=== PATIENT | female | born 1990 | race Caucasian/White ===

== ENCOUNTER 2018-07-09 07:50 | Emergency (ER) | payer SELFPAY ==
[~2018-07-09] VITALS: Ht 152.4 cm; Wt 111.4 kg
[2018-07-09 08:00] VITALS: Ht 152.4 cm; Wt 111.4 kg
[2018-07-09] MEDS ORDERED: LISINOPRIL5 MG PO (08:02)
[2018-07-09 08:21] LABS: BASOPHILS 0.4 % (0-2); EOSINOPHILS 0.8 % (0-7); HEMATOCRIT 35.7 % (36.0-48.0); HEMOGLOBIN 11.5 g/dL (12-16); IMMATURE GRANULOCYTES 0.3 % (0-5); LYMPHOCYTES 28.3 % (15-50); MCH 26.8 pg (26.0-34.0); MCHC 32.2 g/dL (31.0-37.0); MCV 83.2 fL (80.0-100.0); MEAN PLATELET VOLUME 9.4 fL (7.4-10.4); MONOCYTES 8.5 % (2-11); NEUTROPHILS 61.7 % (40-80); PLATELET COUNT 291 10x3/uL (130-400); RBC 4.29 10x6/uL (4.00-5.40); WBC 7.2 10x3/uL (4.8-10.8)
[2018-07-09 08:27] LABS: HCG URINE NEGATIVE (NEGATIVE)
[2018-07-09 08:33] LABS: APPEARANCE CLEAR (CLEAR); BACTERIA NONE SEEN /hpf (NONE SEEN); BILIRUBIN NEGATIVE (NEGATIVE); COLOR YELLOW (YELLOW); EPITHELIAL CELLS OCC /hpf (0-5); GLUCOSE NEGATIVE (NEGATIVE); KETONE NEGATIVE (NEGATIVE); NITRITE NEGATIVE (NEGATIVE); PH 5.5 (5.0-6.0); PROTEIN TRACE mg/dL (NEGATIVE); RED CELLS - URINE NONE SEEN /hpf (0-5); UROBILINOGEN NORMAL (NORMAL); WHITE CELLS - URINE NSEEN /hpf (0-5)
[2018-07-09 08:39] LABS: ALBUMIN 3.6 g/dL (3.4-5.0); ALKALINE PHOSPHATASE 42 U/L (46-116); ALT (SGPT) 19 U/L (10-68); CALC OSMOLALITY 269 mosm/kg (275-300); CALCIUM 8.5 mg/dL (8.5-10.1); CHLORIDE - SERUM 102 mmol/L (98-107); CREATININE - SERUM 0.7 mg/dL (0.6-1.3); GLUCOSE 86 mg/dL (74-106); POTASSIUM - SERUM 4.4 mmol/L (3.5-5.1); PROTEIN - SERUM 7.8 g/dL (6.4-8.2); SODIUM 136 mmol/L (136-145); UREA NITROGEN 9 mg/dL (7-18); eGFR NON AFRICAN AMERICAN > 90 mL/min (90-120)
[2018-07-09] MEDS ORDERED: PHENERGAN25 MG RC (10:29)
[2018-07-09] MEDS ORDERED: LOPERAMIDE HCL2 MG PO (10:29)
[2018-07-09 10:36] VITALS: BP 117/74
== END 2018-07-09 10:37 | disposition home or self-care (01) ==
LOC: D.ER 07:50
PROVIDERS: Emergency Medicine
DX: R10.9 Unspecified abdominal pain (principal); D64.9 Anemia, unspecified; M54.5 Low back pain; I10 Essential (primary) hypertension

== ENCOUNTER 2018-09-23 07:49 | Emergency (ER) | payer SELFPAY ==
[~2018-09-23] VITALS: Ht 152.4 cm; Wt 104.5 kg
[~2018-09-23 07:49] MED LIST: LISINOPRIL5 MG PO; LOPERAMIDE HCL2 MG PO; PHENERGAN25 MG RC
[2018-09-23 07:51] VITALS: Ht 152.4 cm; Wt 104.5 kg
[2018-09-23 08:21] VITALS: BP 130/83
== END 2018-09-23 08:22 | disposition home or self-care (01) ==
LOC: D.ER 07:49
DX: L72.3 Sebaceous cyst (principal); I10 Essential (primary) hypertension

== ENCOUNTER 2018-11-01 11:57 | Emergency (ER) | payer SELFPAY ==
[~2018-11-01] VITALS: Ht 152.4 cm; Wt 107.7 kg
[2018-11-01 12:01] VITALS: Ht 152.4 cm; Wt 107.7 kg
[2018-11-01] MEDS ORDERED: FLUTICASONE PRO16 GM NASAL (14:20)
[2018-11-01] MEDS ORDERED: TESSALON PERLE100 MG PO (14:20)
[2018-11-01] MEDS ORDERED: ZPAK PO (14:20)
[2018-11-01 14:51] VITALS: BP 133/81
== END 2018-11-01 14:51 | disposition home or self-care (01) ==
LOC: D.ER 11:57
DX: J01.90 Acute sinusitis, unspecified (principal); R50.9 Fever, unspecified; R05 Cough

== ENCOUNTER 2018-11-29 07:51 | Emergency (ER) | payer SELFPAY ==
[~2018-11-29] VITALS: Ht 152.4 cm; Wt 104.5 kg
[~2018-11-29 07:51] MED LIST changes: +FLUTICASONE PRO16 GM NASAL; +TESSALON PERLE100 MG PO; +ZPAK PO
[2018-11-29 07:59] VITALS: Ht 152.4 cm; Wt 104.5 kg
[2018-11-29 08:15] LABS: APPEARANCE HAZY (CLEAR); BILIRUBIN NEGATIVE (NEGATIVE); COLOR YELLOW (YELLOW); GLUCOSE NEGATIVE (NEGATIVE); KETONE NEGATIVE (NEGATIVE); NITRITE NEGATIVE (NEGATIVE); PH 5.5 (5.0-6.0); PROTEIN NEGATIVE (NEGATIVE); SPECIFIC GRAVITY 1.025 (1.005-1.020); UROBILINOGEN NORMAL (NORMAL)
[2018-11-29 08:16] LABS: HCG URINE NEGATIVE (NEGATIVE)
[2018-11-29] MEDS ORDERED: NAPROSYN500 MG PO (08:28)
[2018-11-29] MEDS ORDERED: AUGMENTIN 875-11 TAB PO (08:28)
[2018-11-29 08:53] VITALS: BP 125/74
== END 2018-11-29 08:56 | disposition home or self-care (01) ==
LOC: D.ER 07:51
PROVIDERS: Family Medicine
DX: K04.7 Periapical abscess without sinus (principal)

== ENCOUNTER 2019-05-31 15:10 | Emergency (ER) | payer MEDICAID ==
[~2019-05-31 15:10] MED LIST changes: +AUGMENTIN 875-11 TAB PO; +NAPROSYN500 MG PO
[2019-05-31 15:14] VITALS: Ht 152.4 cm
[2019-05-31] MEDS ORDERED: MEDROL DOSE PACK4 MG PO (15:57)
[2019-05-31] MEDS ORDERED: VISTARIL50 MG PO (15:57)
[2019-05-31 16:45] VITALS: BP 115/64
== END 2019-05-31 16:46 | disposition home or self-care (01) ==
LOC: D.ER 15:10
DX: S10.96XA Insect bite of unspecified part of neck, initial encounter (principal); W57.XXXA Bitten or stung by nonvenomous insect and other nonvenomous arthropods, initial encounter; Y93.89 Activity, other specified; Y92.89 Other specified places as the place of occurrence of the external cause

== ENCOUNTER 2019-06-03 08:59 | Emergency (ER) | payer MEDICAID ==
[~2019-06-03] VITALS: Ht 152.4 cm; Wt 90.9 kg
[~2019-06-03 08:59] MED LIST changes: +MEDROL DOSE PACK4 MG PO; +VISTARIL50 MG PO
[2019-06-03 09:05] VITALS: Ht 152.4 cm; Wt 90.9 kg
[2019-06-03] MEDS ORDERED: TORADOL10 MG PO (10:54)
[2019-06-03] MEDS ORDERED: VIBRAMYCIN 100100 MG PO (10:54)
[2019-06-03 11:11] VITALS: BP 120/86
== END 2019-06-03 11:29 | disposition home or self-care (01) ==
LOC: D.ER 08:59
DX: M27.2 Inflammatory conditions of jaws (principal); I10 Essential (primary) hypertension

== ENCOUNTER 2020-02-12 19:54 | Emergency (ER) | payer MEDICAID ==
[~2020-02-12] VITALS: Ht 152.4 cm; Wt 90.5 kg
[~2020-02-12 19:54] MED LIST changes: +TORADOL10 MG PO; +VIBRAMYCIN 100100 MG PO
[2020-02-12 20:12] VITALS: Ht 152.4 cm; Wt 90.5 kg
[2020-02-12] MEDS ORDERED: STERAPRED DS 1010 MG PO (21:04)
[2020-02-12 21:14] VITALS: BP 152/96
== END 2020-02-12 21:14 | disposition home or self-care (01) ==
LOC: D.ER 19:54
DX: L29.9 Pruritus, unspecified (principal); E03.9 Hypothyroidism, unspecified; I10 Essential (primary) hypertension; R13.10 Dysphagia, unspecified

== ENCOUNTER 2020-07-08 07:44 | Emergency (ER) | payer SELFPAY ==
[~2020-07-08] VITALS: Ht 152.4 cm; Wt 90.9 kg
[~2020-07-08 07:44] MED LIST changes: +STERAPRED DS 1010 MG PO
[2020-07-08 07:50] VITALS: Ht 152.4 cm; Wt 90.9 kg
[2020-07-08 08:25] LABS: HCG URINE NEGATIVE (NEGATIVE)
[2020-07-08 08:51] LABS: NITRITE NEGATIVE (NEGATIVE)
[2020-07-08 08:52] LABS: BACTERIA MANY /HPF (NONE SEEN); BILIRUBIN NEGATIVE (NEGATIVE); KETONE SMALL mg/dL (NEGATIVE); UROBILINOGEN 4 mg/dL (< 2); WHITE CELLS - URINE 0-5 HPF (0-4)
[2020-07-08 09:40] LABS: BASOPHILS 0.2 % (0-2); EOSINOPHILS 1.2 % (0-7); HEMATOCRIT 38.2 % (36.0-48.0); HEMOGLOBIN 12.1 g/dL (12-16); IMMATURE GRANULOCYTES 0.4 % (0-5); LYMPHOCYTES 28.6 % (15-50); MCH 27.2 pg (26.0-34.0); MCHC 31.7 g/dL (31.0-37.0); MCV 85.8 fL (80.0-100.0); MEAN PLATELET VOLUME 9.4 fL (7.4-10.4); MONOCYTES 10.6 % (2-11); PLATELET COUNT 318 10x3/uL (130-400); RBC 4.45 10x6/uL (4.00-5.40); RDW 14.1 % (11.5-14.5); WBC 8.1 10x3/uL (4.8-10.8)
[2020-07-08 09:46] LABS: CALC OSMOLALITY 274 mosm/kg (275-300); CALCIUM 8.4 mg/dL (8.5-10.1); CHLORIDE - SERUM 105 mmol/L (98-107); CREATININE - SERUM 0.9 mg/dL (0.6-1.3); GLUCOSE 92 mg/dL (74-106); POTASSIUM - SERUM 3.6 mmol/L (3.5-5.1); SODIUM 138 mmol/L (136-145); UREA NITROGEN 10 mg/dL (7-18); eGFR NON AFRICAN AMERICAN 77 mL/min (90-120)
[2020-07-08 09:55] LABS: ALBUMIN 3.7 g/dL (3.4-5.0); ALKALINE PHOSPHATASE 47 U/L (30-120); ALT (SGPT) 15 U/L (10-68); BILIRUBIN - TOTAL 0.29 mg/dL (0.2-1.3); CREATINE KINASE 55 UL (21-215); PROTEIN - SERUM 7.9 g/dL (6.4-8.2)
[2020-07-08] MEDS ORDERED: HYDROCODON-ACE1 EA10 PO (10:04)
[2020-07-08 10:59] VITALS: BP 136/86
== END 2020-07-08 11:05 | disposition home or self-care (01) ==
LOC: D.ER 07:44
PROVIDERS: Family Medicine
DX: L56.8 Other specified acute skin changes due to ultraviolet radiation (principal); I10 Essential (primary) hypertension

== ENCOUNTER 2020-08-04 15:56 | Emergency (ER) | payer MEDICAID ==
[~2020-08-04] VITALS: Ht 152.4 cm; Wt 90.9 kg
[~2020-08-04 15:56] MED LIST changes: +HYDROCODON-ACE1 EA10 PO
[2020-08-04 16:10] VITALS: BP 116/75; Ht 152.4 cm; Wt 90.9 kg
[2020-08-04] MEDS ORDERED: PENICILLIN V P500 MG PO (18:10)
[2020-08-04] MEDS ORDERED: HYDROCODON-ACE1 EAC7 PO (18:10)
== END 2020-08-04 19:20 | disposition home or self-care (01) ==
LOC: D.ER 15:56
DX: K08.89 Other specified disorders of teeth and supporting structures (principal); I10 Essential (primary) hypertension

== ENCOUNTER 2020-12-28 12:19 | Emergency (ER) | payer MEDICAID ==
[~2020-12-28] VITALS: Ht 152.4 cm; Wt 116.4 kg
[~2020-12-28 12:19] MED LIST changes: +ALBUTEROL SULF8.5 GM INH; +HYDROCODON-ACE1 EAC7 PO; +PENICILLIN V P500 MG PO; +PHENERGAN25 M1 PO; +PHENERGAN50 MG RC; +ZOFRAN ODT4 MG/UDTAB PO
[2020-12-28 12:23] VITALS: Ht 152.4 cm; Wt 116.4 kg
[2020-12-28] MEDS ORDERED: BUSPAR 15 MG TA15 MG PO (12:25)
[2020-12-28] MEDS ORDERED: ZOLOFT25 MG PO (12:25)
[2020-12-28] MEDS ORDERED: ZOCOR10 MG PO (12:26)
[2020-12-28] MEDS ORDERED: NEURONTIN 300300 MG PO (12:26)
[2020-12-28] MEDS ORDERED: SYNTHROID25 MCG PO (12:26)
[2020-12-28] MEDS ORDERED: LISINOPRIL2.5 MG PO (12:26)
[2020-12-28] MEDS ORDERED: MINIPRESS2 MG PO (12:27)
[2020-12-28 13:03] LABS: BASOPHILS 0.4 % (0-2); EOSINOPHILS 1.9 % (0-7); HEMATOCRIT 34.7 % (36.0-48.0); HEMOGLOBIN 11.2 g/dL (12-16); IMMATURE GRANULOCYTES 0.3 % (0-5); LYMPHOCYTES 31.4 % (15-50); MCH 27.5 pg (26.0-34.0); MCHC 32.3 g/dL (31.0-37.0); MCV 85.3 fL (80.0-100.0); MEAN PLATELET VOLUME 9.2 fL (7.4-10.4); MONOCYTES 9.3 % (2-11); NEUTROPHIL ABS# 4.15 10x3/uL (1.56-6.13); NEUTROPHILS 56.7 % (40-80); RBC 4.07 10x6/uL (4.00-5.40); RDW 13.9 % (11.5-14.5); WBC 7.3 10x3/uL (4.8-10.8)
[2020-12-28 13:06] LABS: PLATELET COUNT 267 10x3/uL (130-400)
[2020-12-28 13:10] LABS: APTT 32.7 SECONDS (22.8-39.4); INR 1.08 (0.85-1.17)
[2020-12-28 13:17] LABS: CALC OSMOLALITY 273 mosm/kg (275-300); CALCIUM 8.7 mg/dL (8.5-10.1); CARBON DIOXIDE 29.2 mmol/L (21.0-32.0); CHLORIDE - SERUM 105 mmol/L (98-107); GLUCOSE 78 mg/dL (74-106); POTASSIUM - SERUM 3.8 mmol/L (3.5-5.1); SODIUM 138 mmol/L (136-145); UREA NITROGEN 9 mg/dL (7-18); eGFR NON AFRICAN AMERICAN 68 mL/min (90-120)
[2020-12-28 13:28] LABS: ALBUMIN 3.4 g/dL (3.4-5.0); ALKALINE PHOSPHATASE 47 U/L (30-120); ALT (SGPT) 19 U/L (10-68); BILIRUBIN - TOTAL 0.08 mg/dL (0.2-1.3); CKMB 0.1 U/L (0.0-3.6); CREATINE KINASE 60 UL (21-215); MAGNESIUM - SERUM 1.9 mg/dL (1.8-2.4); PROTEIN - SERUM 7.3 g/dL (6.4-8.2); TROPONIN-I < 0.017 ng/mL (0.000-0.060)
[2020-12-28] MEDS ORDERED: MEDROL DOSE PACK4 MG PO (14:13)
[2020-12-28 15:00] VITALS: BP 130/89
== END 2020-12-28 15:00 | disposition home or self-care (01) ==
LOC: D.ER 12:19
PROVIDERS: Family Medicine
DX: R07.89 Other chest pain (principal); I10 Essential (primary) hypertension

== ENCOUNTER 2021-04-02 07:04 | Emergency (ER) | payer BC ==
[~2021-04-02] VITALS: Ht 152.4 cm; Wt 113.6 kg
[~2021-04-02 07:04] MED LIST changes: +BUSPAR 15 MG TA15 MG PO; +LISINOPRIL2.5 MG PO; +MINIPRESS2 MG PO; +NEURONTIN 300300 MG PO; +SYNTHROID25 MCG PO; +ZOCOR10 MG PO; +ZOLOFT25 MG PO
[2021-04-02 07:24] VITALS: BP 111/81; Ht 152.4 cm; Wt 113.6 kg
[2021-04-02] MEDS ORDERED: CYCLOBENZAPRINE10 MG PO (07:42)
[2021-04-02] MEDS ORDERED: ACETAMINOPHEN500 M1 PO (07:42)
[2021-04-02] MEDS ORDERED: IBUPROFEN800 MG PO (07:42)
== END 2021-04-02 08:08 | disposition home or self-care (01) ==
LOC: D.ER 07:04
DX: M43.6 Torticollis (principal); M54.2 Cervicalgia; T14.8XXA Other injury of unspecified body region, initial encounter; I10 Essential (primary) hypertension; M62.838 Other muscle spasm; X58.XXXA Exposure to other specified factors, initial encounter